=== PATIENT | female | born 1990 | race Asian ===

== ENCOUNTER → 2017-07-19 | Outpatient (CLI) | payer MEDICAID ==
[~2017-07-19] MED LIST: GADOBUTROL 10 ML VIAL IVP ONE
== END ==
LOC: FIMAGING 19:02
PROVIDERS: ATTEND Psychiatry & Neurology Neurology
DX: E23.6 Other disorders of pituitary gland (principal); G93.0 Cerebral cysts
CPT/HCPCS: A9585